=== PATIENT | male | born 1955 | race Caucasian/White ===

== ENCOUNTER 2019-09-23 20:19 | Emergency (ER) | payer OTHER, MEDICAID ==
[~2019-09-23] VITALS: Ht 180.3 cm; Wt 106.6 kg
[~2019-09-23 20:19] MED LIST: ACET-868 PO; ASPI-992 PO; FAMO-131 PO
--- NOTE | 2019-09-23 20:30 | NUR ---
PT AAOX4. BIB EMS FROM STREET C/O GEN WEAKNESS, UNABLE TO GET UP S/P EATING MARIJUANA. PER PATIENT HE TOOK 50MG MARIJUANA. PT ABLE TO CHIEF SUPPLY CHAIN OFFICER BOTH ARMS, RAISE BOTH LEGS, AND SMILE WITHOUT A DRIFT. NO NEURO DEFICIT, PERRLA. PLACED ON MONITOR AND PULSE OX. AWAITING MD FOR EVAL.
--- NOTE | 2019-09-23 21:32 | NUR ---
Patient is resting comfortably in bed. Easily aroused. VSS.
--- NOTE | 2019-09-23 23:39 | NUR ---
Patient is resting comfortably in bed with eyes closed. Easily aroused. VSS.
--- NOTE | 2019-09-24 01:38 | NUR ---
patient is asleep. VSS.
--- NOTE | 2019-09-24 02:51 | NUR ---
PT AWAKE. VSS.
--- NOTE | 2019-09-24 05:57 | NUR ---
PT AAOX4 NO ACUTE DISTRESS NOTED, ERSP EVEN AND UNLABORED. PT DENIES PAIN OR DISCOMFORT AT THIS TIME. PT DENIE SI OR HI AT THIS TIME. PT AMBULATORY WITH STEADY GAIT NOTED. PT REPORTS BEING HOMELESS AND REFUSES ALL RESOURCES OFERRED. PT SIGNED HOMELESS DISCHARGE FORM.
[2019-09-24 06:06] VITALS: BP 141/86
== END 2019-09-24 06:07 | disposition home or self-care (01) ==
LOC: ER 20:24
DX: F12.90 Cannabis use, unspecified, uncomplicated (principal); K21.9 Gastro-esophageal reflux disease without esophagitis; I10 Essential (primary) hypertension; F10.10 Alcohol abuse, uncomplicated; F17.200 Nicotine dependence, unspecified, uncomplicated; Y90.9 Presence of alcohol in blood, level not specified; Z79.82 Long term (current) use of aspirin; Z79.899 Other long term (current) drug therapy